=== PATIENT | male | born 1995 | race Caucasian/White ===

== ENCOUNTER 2018-05-02 13:17 | Emergency (ER) | payer SELFPAY ==
[2018-05-02] MEDS ORDERED: SODIUM CHLORIDE 0.9% 1,000 ML IV ONE (13:47)
[2018-05-02] MEDS ORDERED: LIDOCAINE VISCOUS 2% 15 ML UDC MM STA (13:47)
[2018-05-02] MEDS ORDERED: MAG HYDROX/AL HYDROX/SIMETH 30 ML UDC PO STA (13:47)
[2018-05-02 14:17] LABS: BASOPHILS # (AUTO) 0.1 10^3/uL (0.0-0.1); BASOPHILS % (AUTO) 0.9 %; EOSINOPHILS # (AUTO) 0.1 10^3/uL (0.0-0.7); EOSINOPHILS % (AUTO) 0.6 %; HGB - HEMOGLOBIN 16.1 g/dL (14.0-18.0); LYMPHOCYTES # (AUTO) 1.8 10^3/uL (1.5-3.5); LYMPHOCYTES % (AUTO) 14.6 %; MEAN CORPUSCULAR HEMOGLOBIN 31.4 pg (27.0-31.0); MEAN CORPUSCULAR HGB CONC 34.4 g/dL (32.0-36.0); MEAN CORPUSCULAR VOLUME 91.3 fL (80.0-94.0); MEAN PLATELET VOLUME 7.1 fL (7.4-11.4); MONOCYTES # (AUTO) 0.8 10^3/uL (0.0-1.0); MONOCYTES % (AUTO) 6.6 %; NEUTROPHILS # (AUTO) 9.4 10^3/uL (1.5-6.6); NEUTROPHILS % (AUTO) 77.3 %; PLT - PLATELET COUNT 230 10^3/uL (130-450); RED BLOOD COUNT 5.13 10^6/uL (4.70-6.10); RED CELL DISTRIBUTION WIDTH 14.1 % (12.0-15.0); WHITE BLOOD COUNT 12.2 x10^3/uL (4.8-10.8)
[2018-05-02 14:31] LABS: ALBUMIN 4.2 g/dL (3.2-5.5); ALBUMIN/GLOBULIN RATIO 1.3 (1.0-2.2); BILIRUBIN,TOTAL 0.6 mg/dL (0.2-1.0); CALCIUM 8.7 mg/dL (8.5-10.3); CREATININE 0.7 mg/dL (0.6-1.2); TOTAL PROTEIN 7.5 g/dL (6.7-8.2)
--- NOTE | 2018-05-02 14:50 | ED Physician Documentation ---
<Dallas Swenson - Last Filed: 05/02/18 22:25> History of Present Illness - Stated complaint Stated Complaint: WEAKNESS/STOMACH PAIN - Chief complaint Chief Complaint: Abd Pain - Additonal information Additional information: Patient is a previously healthy 22-year-old male with remote history of GERD presenting with multiple, generalized complaints that have been plaguing him over the past 3 weeks. Patient denies any particular sick contacts, recent travel, or other inciting incidents. He describes general malaise and fatigue to the point of not being able to drive long distances, go to work, or do much for himself. Patient also reports generalized, but mild abdominal discomfort and is otherwise unable to further delineate. Patient denies any current acid reflux symptoms, as well as any vomiting, urinary changes, stool changes, rash, fever, URI symptoms, cough, difficulty breathing or other areas of pain.Patient does note that he drinks regularly, as well as uses tobacco and marijuana regularly, although less as of recently. When questioned further, patient does admit to multiple recent stressors and feeling possibly depressed with little motivation and focus. Patient does also admit to fleeting suicidal thoughts, but does not further elaborate. Patient does have access to weapons at home.Patient denies any particular improving or worsening factors to his symptoms.Patient is amenable to speaking with social work regarding mental health issues. PD PAST MEDICAL HISTORY - Present Medications Home Medications: Ambulatory Orders Medication Instructions Recorded Confirmed Lorazepam [Ativan] 1 mg PO TID PRN #15 tablet 05/02/18 - Allergies Allergies/Adverse Reactions: Allergies Allergy/AdvReac Type Severity Reaction Status Date / Time Penicillins Allergy Hives Verified 05/02/18 13:20 Results - Vitals Vitals: Vital Signs - 24 hr 05/02/18 05/02/18 05/02/18 13:20 16:19 20:21 Temperature 36.6 C 37.4 C 37.0 C Heart Rate 98 88 74 Respiratory 16 20 16 Rate Blood Pressure 168/93 H 151/91 H 163/90 H O2 Saturation 98 98 98 05/02/18 22:14 Temperature 36.9 C Heart Rate 72 Respiratory 16 Rate Blood Pressure 156/102 H O2 Saturation 97 Oxygen O2 Source Room air - Labs Labs: Laboratory Tests 05/02/18 05/02/18 05/02/18 13:30 13:30 13:30 WBC 12.2 H RBC 5.13 Hgb 16.1 Hct 46.8 MCV 91.3 MCH 31.4 H MCHC 34.4 RDW 14.1 Plt Count 230 MPV 7.1 L Neut # (Auto) 9.4 H Lymph # (Auto) 1.8 Creek # (Auto) 0.8 Eos # (Auto) 0.1 Baso # (Auto) 0.1 Absolute Nucleated RBC 0.01 Nucleated RBC % 0.1 Sodium 136 Potassium 3.3 L Chloride 101 Carbon Dioxide 26 Anion Gap 9.0 BUN 7 Creatinine 0.7 Estimated GFR (MDRD) 139 Glucose 93 Calcium 8.7 Total Bilirubin 0.6 AST 26 ALT 33 Alkaline Phosphatase 84 Total Protein 7.5 Albumin 4.2 Globulin 3.3 Albumin/Globulin Ratio 1.3 Lipase 24 Urine Color Urine Clarity Urine pH Ur Specific [place] Urine Protein Urine Glucose (UA) Urine Ketones Urine Occult Blood Urine Nitrite Urine Bilirubin Urine Urobilinogen Ur Leukocyte Esterase Ur Microscopic Review Urine Culture Comments Urine Opiates Screen Ur Oxycodone Screen Urine Methadone Screen Ur Propoxyphene Screen Ur Barbiturates Screen Ur Tricyclics Screen Ur Phencyclidine Scrn Ur Amphetamine Screen U Methamphetamines Scrn U Benzodiazepines Scrn Urine Cocaine Screen U Cannabinoids Screen Ethyl Alcohol Infectious [place] Assay NEGATIVE 05/02/18 05/02/18 13:30 15:00 WBC RBC Hgb Hct MCV MCH MCHC RDW Plt Count MPV Neut # (Auto) Lymph # (Auto) Creek # (Auto) Eos # (Auto) Baso # (Auto) Absolute Nucleated RBC Nucleated RBC % Sodium Potassium Chloride Carbon Dioxide Anion Gap BUN Creatinine Estimated GFR (MDRD) Glucose Calcium Total Bilirubin AST ALT Alkaline Phosphatase Total Protein Albumin Globulin Albumin/Globulin Ratio Lipase Urine Color YELLOW Urine Clarity CLEAR Urine pH 8.0 H Ur Specific [place] 1.020 Urine Protein TRACE Urine Glucose (UA) NEGATIVE Urine Ketones NEGATIVE Urine Occult Blood NEGATIVE Urine Nitrite NEGATIVE Urine Bilirubin NEGATIVE Urine Urobilinogen 0.2 (NORMAL) Ur Leukocyte Esterase NEGATIVE Ur Microscopic Review NOT INDICATED Urine Culture Comments NOT INDICATED Urine Opiates Screen NEGATIVE Ur Oxycodone Screen NEGATIVE Urine Methadone Screen NEGATIVE Ur Propoxyphene Screen NEGATIVE Ur Barbiturates Screen NEGATIVE Ur Tricyclics Screen NEGATIVE Ur Phencyclidine Scrn NEGATIVE Ur Amphetamine Screen NEGATIVE U Methamphetamines Scrn NEGATIVE U Benzodiazepines Scrn NEGATIVE Urine Cocaine Screen NEGATIVE U Cannabinoids Screen POSITIVE H Ethyl Alcohol 40.6 Infectious [place] Assay PD MEDICAL DECISION MAKING - ED course ED course: Patient presenting with generalized, vague symptoms that are not indicative of urgent or emergent systemic illness or specific disease process. Discussed obtaining screening lab work, as well as urinalysis and also a mono test given the duration and quality of patient's symptoms. Do not feel he requires imaging at this time, but felt appropriate to give IV fluid and GI cocktail, particularly given history and concerns for GERD and abdominal pain today. Have bigger concern for mental health issues including depression, suicidal thoughts, anxiety, substance use and others. Feel that social work consult is a ppropriate. Patient is amenable to mental health evaluation as well. Screening lab work, urinalysis returned relatively unremarkable except for presence of alcohol and marijuana. Creek spot negative. Social work consulted who did have concerns for alcohol use, significant depression, and fleeting SI without specific plan. Patient is currently voluntary and willing to receive mental health services. Social work undergoing search for appropriate placement at this time. Patient signed out to Dr. Swenson at approximately 1800. Update 10:23pm: We were waiting for the crisis center to call back. The initial crisis center felt he was not appropriate and we were working on another one. Patient did not want to wait anymore. I went and personally evaluated him and discussed with him and his mother. He is a heavy drinker, drinks about 1/5 a day. He is chronically depressed. He has had suicidal ideation but currently is not, he says the last time he was suicidal to me was about 5 days ago. He does have weapons in the house. He is never had a plan. We agreed is that he would go home and stay with the mom, she would monitor the medications and keep him safe. He understands he is to return anytime if worse, and crisis outreach will call him tomorrow. He was slightly tremulous, he was given 1 mg of Ativan orally. Departure - Departure Disposition: 01 Home, Self Care Clinical Impression: Alcohol withdrawal Qualifiers: Complication of substance-induced condition: uncomplicated Qualified Code(s): F10.230 - Alcohol dependence with withdrawal, uncomplicated Condition: Good Record reviewed to determine appropriate education?: Yes Instructions: ED Abdominal Pain Unkn Cause, ED Withdrawal Alcohol Prescriptions: Lorazepam [Ativan] 1 mg PO TID PRN #15 tablet PRN Reason: Anxiety Comments: As discussed crisis outreach should call you tomorrow. If you are worse at any time or develop suicidal ideation please return for reevaluation. Do not drink. Also as discussed I recommend that your mom hold the prescription medications and dispense them only as prescribed per package instructions for alcohol withd key symptoms. Your blood pressure was elevated today on check into the emergency department. This does not mean that you have hypertension, it is a common phenomenon to come to the emergency department and have elevated blood pressure. I recommend that you see your primary care physician within the week to have it rechecked when you are feeling better. Forms: Activity restrictions Discharge Date/Time: 05/02/18 22:43 <Shari Haney - Last Filed: 05/03/18 07:06> History of Present Illness - History obtained from History obtained from: Patient, Family - History of Present Illness Pain level max: 0 - Additonal information Additional information: Patient is a previously healthy 22-year-old male with remote history of GERD presenting with multiple, generalized complaints that have been plaguing him over the past 3 weeks. Patient denies any particular sick contacts, recent travel, or other inciting incidents. He describes general malaise and fatigue to the point of not being able to drive long distances, go to work, or do much for himself. Patient also reports generalized, but mild abdominal discomfort and is otherwise unable to further delineate. Patient denies any current acid reflux symptoms, as well as any vomiting, urinary changes, stool changes, rash, fever, URI symptoms, cough, difficulty breathing or other areas of pain.Patient does note that he drinks regularly, as well as uses tobacco and marijuana regularly, although less as of recently. When questioned further, patient does admit to multiple recent stressors and feeling possibly depressed with little motivation and focus. Patient does also admit to fleeting suicidal thoughts, but does not further elaborate. Patient does have access to weapons at home.Patient denies any particular improving or worsening factors to his symptoms.Patient is amenable to speaking with social work regarding mental health issues. Review of Systems Ten Systems: 10 systems reviewed and negative Constitutional: reports: Fatigue. denies: Fever Eyes: denies: Reviewed and negative Ears: denies: Reviewed and negative Nose: denies: Reviewed and negative Throat: denies: Reviewed and negative Cardiac: denies: Chest pain / pressure Respiratory: denies: Dyspnea, Cough GI: reports: Abdominal Pain. denies: Vomiting, Diarrhea : denies: Dysuria Skin: denies: Rash Neurologic: reports: Generalized weakness Psychiatric: reports: Depressed, Suicidal PD PAST MEDICAL HISTORY - Past Medical History Past Medical History: Yes GI: GERD - Past Surgical History Past Surgical History: No - Social History Does the pt smoke?: Yes Does the pt drink ETOH?: Yes ETOH Use: Liquor Substance Use and Type: Marijuana PD ED PE NORMAL - General General: Alert and oriented X 3, No acute distress, Well developed/nourished - HEENT HEENT: Atraumatic, PERRL, EOMI, Moist mucous membranes, Pharynx benign, Other (Gross visual acuity intact. No nystagmus.) - Neck Neck: Supple, no meningeal sign - Cardiac Cardiac: RRR, No murmur - Respiratory Respiratory: No respiratory distress, Clear bilaterally - Abdomen Abdomen: Soft, Non tender, Non distended - Derm Derm: Normal color, Warm and dry, No rash - Extremities Extremities: No deformity, No tenderness to palpate - Neuro Neuro: Alert and oriented X 3, No motor deficit, No sensory deficit, Normal speech - Psych Psych: Other (Slightly depressed affect. Good eye contact. Admits to depressive symptoms and SI) Results - Vitals Vitals: Vital Signs - 24 hr 05/02/18 05/02/18 05/02/18 13:20 16:19 20:21 Temperature 36.6 C 37.4 C 37.0 C Heart Rate 98 88 74 Respiratory 16 20 16 Rate Blood Pressure 168/93 H 151/91 H 163/90 H O2 Saturation 98 98 98 05/02/18 22:14 Temperature 36.9 C Heart Rate 72 Respiratory 16 Rate Blood Pressure 156/102 H O2 Saturation 97 Oxygen O2 Source Room air - Labs Labs: Laboratory Tests 05/02/18 05/02/18 05/02/18 13:30 13:30 13:30 WBC 12.2 H RBC 5.13 Hgb 16.1 Hct 46.8 MCV 91.3 MCH 31.4 H MCHC 34.4 RDW 14.1 Plt Count 230 MPV 7.1 L Neut # (Auto) 9.4 H Lymph # (Auto) 1.8 Creek # (Auto) 0.8 Eos # (Auto) 0.1 Baso # (Auto) 0.1 Absolute Nucleated RBC 0.01 Nucleated RBC % 0.1 Sodium 136 Potassium 3.3 L Chloride 101 Carbon Dioxide 26 Anion Gap 9.0 BUN 7 Creatinine 0.7 Estimated GFR (MDRD) 139 Glucose 93 Calcium 8.7 Total Bilirubin 0.6 AST 26 ALT 33 Alkaline Phosphatase 84 Total Protein 7.5 Albumin 4.2 Globulin 3.3 Albumin/Globulin Ratio 1.3 Lipase 24 Urine Color Urine Clarity Urine pH Ur Specific [place] Urine Protein Urine Glucose (UA) Urine Ketones Urine Occult Blood Urine Nitrite Urine Bilirubin Urine Urobilinogen Ur Leukocyte Esterase Ur Microscopic Review Urine Culture Comments Urine Opiates Screen Ur Oxycodone Screen Urine Methadone Screen Ur Propoxyphene Screen Ur Barbiturates Screen Ur Tricyclics Screen Ur Phencyclidine Scrn Ur Amphetamine Screen U Methamphetamines Scrn U Benzodiazepines Scrn Urine Cocaine Screen U Cannabinoids Screen Ethyl Alcohol Infectious [place] Assay NEGATIVE 05/02/18 05/02/18 13:30 15:00 WBC RBC Hgb Hct MCV MCH MCHC RDW Plt Count MPV Neut # (Auto) Lymph # (Auto) Creek # (Auto) Eos # (Auto) Baso # (Auto) Absolute Nucleated RBC Nucleated RBC % Sodium Potassium Chloride Carbon Dioxide Anion Gap BUN Creatinine Estimated GFR (MDRD) Glucose Calcium Total Bilirubin AST ALT Alkaline Phosphatase Total Protein Albumin Globulin Albumin/Globulin Ratio Lipase Urine Color YELLOW Urine Clarity CLEAR Urine pH 8.0 H Ur Specific [place] 1.020 Urine Protein TRACE Urine Glucose (UA) NEGATIVE Urine Ketones NEGATIVE Urine Occult Blood NEGATIVE Urine Nitrite NEGATIVE Urine Bilirubin NEGATIVE Urine Urobilinogen 0.2 (NORMAL) Ur Leukocyte Esterase NEGATIVE Ur Microscopic Review NOT INDICATED Urine Culture Comments NOT INDICATED Urine Opiates Screen NEGATIVE Ur Oxycodone Screen NEGATIVE Urine Methadone Screen NEGATIVE Ur Propoxyphene Screen NEGATIVE Ur Barbiturates Screen NEGATIVE Ur Tricyclics Screen NEGATIVE Ur Phencyclidine Scrn NEGATIVE Ur Amphetamine Screen NEGATIVE U Methamphetamines Scrn NEGATIVE U Benzodiazepines Scrn NEGATIVE Urine Cocaine Screen NEGATIVE U Cannabinoids Screen POSITIVE H Ethyl Alcohol 40.6 Infectious [place] Assay PD MEDICAL DECISION MAKING - ED course Complexity details: reviewed results, considered differential, d/w patient, d/w family, d/w network relations consultant ED course: Patient presenting with generalized, vague symptoms that are not indicative of urgent or emergent systemic illness or specific disease process. Discussed obtaining screening lab work, as well as urinalysis and also a mono test given the duration and quality of patient's symptoms. Do not feel he requires imaging at this time, but felt appropriate to give IV fluid and GI cocktail, particularly given history and concerns for GERD and abdominal pain today. Have bigger concern for mental health issues including depression, suicidal thoughts, anxiety, substance use and others. Feel that social work consult is appropriate. Patient is amenable to mental health evaluation as well. Screening lab work, urinalysis returned relatively unremarkable except for presence of alcohol and marijuana. Creek spot negative. Social work consulted who did have concerns for alcohol use, significant depression, and fleeting SI without specific plan. Patient is currently voluntary and willing to receive mental health services. Social work undergoing search for appropriate placement at this time. Patient signed out to Dr. Swenson at approximately 1800. Update 10:23pm: We were waiting for the crisis center to call back. The initial crisis center felt he was not appropriate and we were working on another one. Patient did not want to wait anymore. I went and personally evaluated him and discussed with him and his mother. He is a heavy drinker, drinks about 1/5 a day. He is chronically depressed. He has had suicidal ideation but currently is not, he says the last time he was suicidal to me was about 5 days ago. He does have weapons in the house. He is never had a plan. We agreed is that he would go home and stay with the mom, she would monitor the medications and keep him safe. He understands he is to return anytime if worse, and crisis outreach will call him tomorrow. He was slightly tremulous, he was given 1 mg of Ativan orally.
[2018-05-02 15:56] LABS: MUDS CUTOFF CONCENTRATIONS CUTOFF CONC BELOW:
[2018-05-02 15:58] LABS: BILIRUBIN,URINE NEGATIVE (NEGATIVE); GLUCOSE, URINE (UA) NEGATIVE (NEGATIVE); KETONES,URINE (UA) NEGATIVE (NEGATIVE); LEUKOCYTE ESTERASE, URINE NEGATIVE (NEGATIVE); NITRITE,URINE NEGATIVE (NEGATIVE); OCCULT BLOOD,URINE NEGATIVE (NEGATIVE); PROTEIN,URINE TRACE mg/dL (NEGATIVE); UROBILINOGEN,URINE 0.2 (NORMAL) E.U./dL (NORMAL)
[2018-05-02 16:00] LABS: CLARITY,URINE CLEAR (CLEAR)
[2018-05-02 16:11] LABS: AMPHETAMINE SCREEN,URINE NEGATIVE (NEGATIVE); BENZODIAZEPINES SCREEN, URINE NEGATIVE (NEGATIVE); COCAINE SCREEN URINE NEGATIVE (NEGATIVE); METHADONE SCREEN, URINE NEGATIVE (NEGATIVE); METHAMPHETAMINES SCREEN, URINE NEGATIVE (NEGATIVE); OPIATE SCREEN, URINE NEGATIVE (NEGATIVE); OXYCODONE SCREEN, URINE NEGATIVE (NEGATIVE); PROPOXYPHENE SCREEN, URINE NEGATIVE (NEGATIVE); TRICYCLIC ANTIDEPRESSANT,URINE NEGATIVE (NEGATIVE)
[2018-05-02 22:15] VITALS: BP 156/102
[2018-05-02] MEDS ORDERED: LORazepam 1 MG TABLET PO STA (22:23)
== END 2018-05-02 22:43 | disposition home or self-care (01) ==
LOC: ED 13:17
DX: F10.230 Alcohol dependence with withdrawal, uncomplicated (principal); F32.9 Major depressive disorder, single episode, unspecified; F41.9 Anxiety disorder, unspecified; R45.851 Suicidal ideations; F12.90 Cannabis use, unspecified, uncomplicated; F17.200 Nicotine dependence, unspecified, uncomplicated; R03.0 Elevated blood-pressure reading, without diagnosis of hypertension; K21.9 Gastro-esophageal reflux disease without esophagitis
CPT/HCPCS: 36415; 80053; 80306; 80320; 81003; 83690; 85025; 86308; 96360; 96361; 99284; A9270; J8499; 81001; 87086

== ENCOUNTER 2019-12-19 12:06 | Outpatient (CLI) | payer SELFPAY | END 2019-12-19 12:07 | disposition home or self-care (01) | LOC: COV 12:06 | PROVIDERS: ATTEND Family Medicine | DX: R05 Cough (principal); R53.83 Other fatigue; R11.2 Nausea with vomiting, unspecified; R19.7 Diarrhea, unspecified; Z20.828 Contact with and (suspected) exposure to other viral communicable diseases ==